=== PATIENT | male | born 1960 | race African-American/Black ===

== ENCOUNTER 2017-04-25 09:01 | Emergency (ER) | payer MEDICAID ==
[~2017-04-25] VITALS: Ht 177.8 cm; Wt 82.0 kg
[~2017-04-25 09:01] MED LIST: ASPI-1159 PO; ATOR10TA PO; GABA-531 PO; METF500T PO; NAPR-681 PO
[2017-04-25] MEDS ORDERED: MAGNESIUM CITRATE 300ML SOLUTION PO ONE (15:00)
[2017-04-25] MEDS ORDERED: SODIUM CHLORIDE 0.9% 500 ML IV ONE (15:00)
[2017-04-25 15:26] LABS: BASOPHILS % 0.3 % (0.0-2.0); EOSINOPHILS % 0.6 % (0.0-5.0); HEMATOCRIT. 36.6 % (42.0-52.0); HEMOGLOBIN. 12.7 g/dL (14.0-18.0); LYMPHOCYTES % 21.7 % (20.0-50.0); MEAN CORPUSCULAR HEMOGLOBIN 30.5 pg (28.0-32.0); MEAN CORPUSCULAR VOLUME 88.1 fL (80.0-94.0); MEAN PLATELET VOLUME 8.7 fl (7.4-10.4); MONOCYTES % 5.7 % (2.0-8.0); NEUTROPHILS % 71.7 % (40.0-76.0); PLATELET 190 x1000/uL (130-400); RED BLOOD CELL COUNT 4.15 mill/uL (4.7-6.1); RED CELL DISTRIBUTION WIDTH 12.9 % (11.6-14.6)
[2017-04-25 15:34] LABS: INR 1.1; PROTHROMBIN TIME 11.8 sec (9.4-11.6)
[2017-04-25 15:37] LABS: CHLORIDE 108 mEq/L (98-107)
[2017-04-25 15:46] LABS: CARBON DIOXIDE 28 mEq/L (21-32)
[2017-04-25 18:24] VITALS: BP 111/64
== END 2017-04-25 18:50 | disposition home or self-care (01) ==
LOC: ER 09:43
DX: K59.00 Constipation, unspecified (principal); I10 Essential (primary) hypertension; E78.00 Pure hypercholesterolemia, unspecified; E11.9 Type 2 diabetes mellitus without complications; Z87.891 Personal history of nicotine dependence; Z79.82 Long term (current) use of aspirin; Z86.73 Personal history of transient ischemic attack (TIA), and cerebral infarction without residual deficits
CPT/HCPCS: 36415; 74176; 80053; 83690; 85025; 85610; 96360; 96361; 99285; J7030

== ENCOUNTER 2018-02-18 12:34 | Inpatient (IN) | payer MEDICAID ==
[~2018-02-18] VITALS: Ht 165.1 cm; Wt 75.8 kg
[~2018-02-18 12:34] MED LIST changes: +ACET-2178 PO; -ATOR10TA PO; +ATOR20TA65 PO; +GABA-529 PO; -GABA-531 PO; +IBUP-2028 PO; +METO-539 PO; -NAPR-681 PO
[2018-02-18] MEDS ORDERED: SODIUM CHLORIDE 0.9% 1,000 ML IV ONE ×2 (12:59→16:30)
[2018-02-18] MEDS ORDERED: ONDANSETRON HCL 4MG/2ML INJ IV STA (12:59)
[2018-02-18 13:36] LABS: HEMATOCRIT. 42.7 % (42.0-52.0); HEMOGLOBIN. 15.7 g/dL (14.0-18.0); MEAN CORPUSCULAR HEMOGLOBIN 32.5 pg (28.0-32.0); MEAN CORPUSCULAR VOLUME 88.7 fL (80.0-94.0); MEAN PLATELET VOLUME 8.5 fl (7.4-10.4); PLATELET 190 x1000/uL (130-400); RED BLOOD CELL COUNT 4.82 mill/uL (4.7-6.1)
[2018-02-18 13:45] LABS: INR 1.1; PROTHROMBIN TIME 11.5 sec (9.1-11.1)
[2018-02-18 13:48] LABS: CHLORIDE 101 mEq/L (98-107)
[2018-02-18 14:11] LABS: PLATELET ESTIMATE NORMAL
[2018-02-18 15:46] LABS: CLARITY URINE CLEAR (CLEAR); COLOR URINE YELLOW (YELLOW); KETONES URINE 3+ (NEGATIVE); LEUKOCYTE ESTERASE URINE NEGATIVE (NEGATIVE); NITRITE URINE NEGATIVE (NEGATIVE); OCCULT BLOOD URINE 1+ (NEGATIVE); PROTEIN URINE NEGATIVE (NEGATIVE); SPECIFIC GRAVITY URINE 1.016 (1.005-1.030)
[2018-02-18] MEDS ORDERED: CLONIDINE 0.1MG TABLET PO PRN (18:45)
[2018-02-18] MEDS ORDERED: ACETAMINOPHEN 650MG/20.3ML UDC GT PRN (18:45)
[2018-02-18] MEDS ORDERED: HYDROCODONE/ACETAMINOPHEN 10/325MG TABLET PO PRN (18:45)
[2018-02-18] MEDS ORDERED: ACETAMINOPHEN 325MG TABLET PO PRN (18:45)
[2018-02-18] MEDS ORDERED: ONDANSETRON HCL 4MG/2ML INJ IV PRN (18:45)
[2018-02-18] MEDS ORDERED: MAGNESIUM/ALUMINUM HYDROXIDE/SIMETHICONE 30ML UDC PO PRN (18:45)
[2018-02-18] MEDS ORDERED: HYDROCODONE/ACETAMINOPHEN 5/325MG TABLET PO PRN (18:45)
[2018-02-18] MEDS ORDERED: ACETAMINOPHEN 650MG SUPP PR PRN (18:45)
[2018-02-18] MEDS ORDERED: GUAIFENESIN 200MG/10ML SUGAR FREE UDC PO PRN (18:45)
[2018-02-18] MEDS ORDERED: IPRATROPIUM/ALBUTEROL 0.5-3(2.5)MG/3ML NEB INH PRN (18:45)
[2018-02-18] MEDS ORDERED: NA PHOS,M-B/NA PHOS,DI-BA ENEMA 118ML PR PRN (21:00)
[2018-02-18] MEDS ORDERED: METOCLOPRAMIDE HCL 10MG/2ML VIAL IV NR (21:54)
[2018-02-18 22:15] VITALS: BP 169/89
[2018-02-18 23:00] VITALS: BP 169/89
[2018-02-19] VITALS: BP 162/81
[2018-02-19] MEDS: SODIUM CHLORIDE 0.45% 1,000 ML IV SCH ×2 (00:44→16:10)
[2018-02-19] MEDS: METOCLOPRAMIDE HCL 10MG/2ML VIAL IV SCH ×4 (00:45→18:34)
[2018-02-19 04:00] VITALS: BP 142/86
[2018-02-19] MEDS: SODIUM CHLORIDE 0.9% INJ 3ML FLUSH IVF SCH ×3 (06:32→20:24)
[2018-02-19 07:07] LABS: BASOPHILS % 0.1 % (0.0-2.0); HEMOGLOBIN. 14.3 g/dL (14.0-18.0); MEAN CORPUSCULAR HEMOGLOBIN 31.5 pg (28.0-32.0); MEAN CORPUSCULAR VOLUME 88.3 fL (80.0-94.0); MEAN PLATELET VOLUME 8.8 fl (7.4-10.4); NEUTROPHILS % 81.9 % (40.0-76.0); PLATELET 201 x1000/uL (130-400); RED BLOOD CELL COUNT 4.52 mill/uL (4.7-6.1); RED CELL DISTRIBUTION WIDTH 13.1 % (11.6-14.6)
[2018-02-19 07:26] LABS: CHLORIDE 100 mEq/L (98-107)
[2018-02-19] MEDS ORDERED: DEXTROSE 50% WATER 50ML SYRINGE IV PRN (07:30)
[2018-02-19] MEDS: BLOOD SUGAR DIAGNOSTIC STRIP TEST SCH ×4 (07:40→20:24)
[2018-02-19] MEDS: INSULIN LISPRO 100 UNITS/ML SUBCUT SCH ×4 (07:50→20:32)
[2018-02-19 07:51] LABS: HDL CHOLESTEROL 45 mg/dL (40-59); LDL CHOLESTEROL 71 mg/dL (5-100)
[2018-02-19 08:00] VITALS: BP 157/88
[2018-02-19 09:12] LABS: *BENZODIAZEPINES SCREEN URINE NEGATIVE (NEGATIVE)
[2018-02-19 09:41] LABS: METHADONE URINE SCREEN NEGATIVE (NEGATIVE); OPIATES URINE SCREEN NEGATIVE (NEGATIVE); PHENCYCLIDINE URINE SCREEN NEGATIVE (NEGATIVE)
[2018-02-19 09:55] LABS: *AMPHETAMINES SCREEN URINE NEGATIVE (NEGATIVE); *BARBITURATES SCREEN URINE NEGATIVE (NEGATIVE); *COCAINE SCREEN URINE NEGATIVE (NEGATIVE); CANNABINOID URINE SCREEN NEGATIVE (NEGATIVE)
[2018-02-19] MEDS: ENOXAPARIN 40MG/0.4ML SYR SUBCUT SCH (10:48)
[2018-02-19] MEDS: FAMOTIDINE 20MG/2ML VIAL IV SCH (10:48)
[2018-02-19 12:00] VITALS: BP 154/79
[2018-02-19 16:00] VITALS: BP 149/77
[2018-02-19 20:00] VITALS: BP 154/70
[2018-02-20] VITALS: BP 140/76
[2018-02-20] MEDS: METOCLOPRAMIDE HCL 10MG/2ML VIAL IV SCH ×4 (00:53→20:04)
[2018-02-20 04:00] VITALS: BP 144/87
[2018-02-20] MEDS: BLOOD SUGAR DIAGNOSTIC STRIP TEST SCH ×4 (06:11→20:19)
[2018-02-20] MEDS: SODIUM CHLORIDE 0.9% INJ 3ML FLUSH IVF SCH ×3 (06:13→21:44)
[2018-02-20] MEDS: SODIUM CHLORIDE 0.45% 1,000 ML IV SCH (07:32)
[2018-02-20] MEDS: INSULIN LISPRO 100 UNITS/ML SUBCUT SCH ×4 (07:50→20:18)
[2018-02-20 08:00] VITALS: BP 139/69
[2018-02-20] MEDS: FAMOTIDINE 20MG/2ML VIAL IV SCH (09:36)
[2018-02-20] MEDS: DOCUSATE SODIUM 100MG CAPSULE PO PRN ×2 (09:36→20:15)
[2018-02-20] MEDS: ENOXAPARIN 40MG/0.4ML SYR SUBCUT SCH (09:36)
[2018-02-20 12:00] VITALS: BP 155/83
[2018-02-20 16:00] VITALS: BP 152/83
[2018-02-20 20:00] VITALS: BP 153/78
[2018-02-21] VITALS: BP 155/86
[2018-02-21] MEDS: SODIUM CHLORIDE 0.45% 1,000 ML IV SCH ×2 (02:41→17:56)
[2018-02-21 04:00] VITALS: BP 150/76
[2018-02-21] MEDS: METOCLOPRAMIDE HCL 10MG/2ML VIAL IV SCH ×4 (06:00→17:55)
[2018-02-21] MEDS: SODIUM CHLORIDE 0.9% INJ 3ML FLUSH IVF SCH ×3 (06:13→22:18)
[2018-02-21] MEDS: BLOOD SUGAR DIAGNOSTIC STRIP TEST SCH ×4 (06:17→21:00)
[2018-02-21] MEDS: INSULIN LISPRO 100 UNITS/ML SUBCUT SCH ×4 (07:33→22:45)
[2018-02-21 08:00] VITALS: BP 141/81
[2018-02-21] MEDS: FAMOTIDINE 20MG/2ML VIAL IV SCH (08:50)
[2018-02-21] MEDS: ENOXAPARIN 40MG/0.4ML SYR SUBCUT SCH (08:51)
[2018-02-21 09:49] LABS: CHLORIDE 104 mEq/L (98-107)
[2018-02-21 10:08] LABS: BASOPHILS % 0.4 % (0.0-2.0); EOSINOPHILS % 0.8 % (0.0-5.0); HEMATOCRIT. 38.6 % (42.0-52.0); LYMPHOCYTES % 18.6 % (20.0-50.0); MEAN CORPUSCULAR HEMOGLOBIN 31.6 pg (28.0-32.0); MEAN PLATELET VOLUME 8.6 fl (7.4-10.4); MONOCYTES % 6.1 % (2.0-8.0); NEUTROPHILS % 74.1 % (40.0-76.0); PLATELET 173 x1000/uL (130-400); RED BLOOD CELL COUNT 4.44 mill/uL (4.7-6.1); RED CELL DISTRIBUTION WIDTH 13.1 % (11.6-14.6)
[2018-02-21 12:00] VITALS: BP 140/75
[2018-02-21] MEDS ORDERED: POTASSIUM CHLORIDE 20MEQ TABLET SR PO SCH (12:00)
[2018-02-21 16:00] VITALS: BP 134/74
[2018-02-21 20:00] VITALS: BP 138/61
[2018-02-22] VITALS: BP 131/66
[2018-02-22 04:00] VITALS: BP 136/62
[2018-02-22] MEDS: METOCLOPRAMIDE HCL 10MG/2ML VIAL IV SCH ×4 (06:00→18:00)
[2018-02-22] MEDS: SODIUM CHLORIDE 0.9% INJ 3ML FLUSH IVF SCH ×3 (06:36→21:48)
[2018-02-22] MEDS: BLOOD SUGAR DIAGNOSTIC STRIP TEST SCH ×4 (06:37→21:43)
[2018-02-22] MEDS: INSULIN LISPRO 100 UNITS/ML SUBCUT SCH ×4 (07:20→21:43)
[2018-02-22 08:00] VITALS: BP 156/94
[2018-02-22] MEDS: FAMOTIDINE 20MG/2ML VIAL IV SCH (09:57)
[2018-02-22] MEDS: SODIUM CHLORIDE 0.45% 1,000 ML IV SCH (09:57)
[2018-02-22] MEDS: ENOXAPARIN 40MG/0.4ML SYR SUBCUT SCH (09:59)
[2018-02-22 12:00] VITALS: BP 144/79
[2018-02-22 16:00] VITALS: BP 155/83
[2018-02-22 20:00] VITALS: BP 153/53
[2018-02-23] MEDS: METOCLOPRAMIDE HCL 10MG/2ML VIAL IV SCH ×2 (00:45→07:07)
[2018-02-23 04:00] VITALS: BP 142/69
[2018-02-23] MEDS: SODIUM CHLORIDE 0.9% INJ 3ML FLUSH IVF SCH (06:00)
[2018-02-23] MEDS: BLOOD SUGAR DIAGNOSTIC STRIP TEST SCH (07:12)
[2018-02-23 08:32] VITALS: BP 144/84
== END 2018-02-23 09:16 | disposition home or self-care (01) | DRG 48 ==
LOC: ER 12:34 → 6EST 16:37 → ENRESERV 20:28
PROVIDERS: ADMIT Family Medicine; ATTEND Family Medicine
DX: E11.43 Type 2 diabetes mellitus with diabetic autonomic (poly)neuropathy (principal); K31.84 Gastroparesis; E11.40 Type 2 diabetes mellitus with diabetic neuropathy, unspecified; I10 Essential (primary) hypertension; E86.0 Dehydration; E78.5 Hyperlipidemia, unspecified; Z86.73 Personal history of transient ischemic attack (TIA), and cerebral infarction without residual deficits; Z59.0 Homelessness; Z79.82 Long term (current) use of aspirin
CPT/HCPCS: 36415; 71045; 74176; 80061; 80305; 82962; 83036; 83880; 84484; 93005; 96361; 96374; 99285; J1650; J1815; J2405; J2765; J3490; J7030

== ENCOUNTER 2018-06-09 17:30 | Inpatient (IN) | payer MEDICAID ==
[2018-06-08 22:50] VITALS: BP 164/100
[~2018-06-09] VITALS: Ht 175.3 cm; Wt 81.6 kg
[2018-06-09] MEDS ORDERED: ASPIRIN 325MG EC TABLET PO ONE (23:00)
[2018-06-10 00:10] LABS: BASOPHILS % 0.6 % (0.0-2.0); EOSINOPHILS % 0.8 % (0.0-5.0); HEMATOCRIT. 39.9 % (42.0-52.0); HEMOGLOBIN. 14.2 g/dL (14.0-18.0); LYMPHOCYTES % 26.7 % (20.0-50.0); MEAN CORPUSCULAR HEMOGLOBIN 31.4 pg (28.0-32.0); MEAN CORPUSCULAR VOLUME 88.3 fL (80.0-94.0); MEAN PLATELET VOLUME 9.2 fl (7.4-10.4); MONOCYTES % 6.2 % (2.0-8.0); NEUTROPHILS % 65.7 % (40.0-76.0); PLATELET 177 x1000/uL (130-400); RED BLOOD CELL COUNT 4.52 mill/uL (4.7-6.1); RED CELL DISTRIBUTION WIDTH 13.4 % (11.6-14.6)
[2018-06-10 01:28] LABS: CHLORIDE 104 mEq/L (98-107)
[2018-06-10] MEDS ORDERED: CEFTRIAXONE 1 G PREMIX 50 ML IV SCH (03:00)
[2018-06-10] MEDS ORDERED: AZITHROMYCIN 500 MG in DEXT 5% WATER 250 ML IV SCH (04:00)
[2018-06-10] MEDS ORDERED: ACETAMINOPHEN 325MG TABLET PO PRN (11:45)
[2018-06-10] MEDS ORDERED: MAGNESIUM/ALUMINUM HYDROXIDE/SIMETHICONE 30ML UDC PO PRN (11:45)
[2018-06-10] MEDS ORDERED: LORAZEPAM 0.5MG TABLET PO PRN (11:45)
[2018-06-10] MEDS ORDERED: ONDANSETRON HCL 4MG/2ML INJ IV PRN (11:45)
[2018-06-10] MEDS ORDERED: DOCUSATE SODIUM 100MG CAPSULE PO PRN (11:45)
[2018-06-10] MEDS ORDERED: CLONIDINE 0.1MG TABLET PO PRN (11:45)
[2018-06-10] MEDS ORDERED: IPRATROPIUM/ALBUTEROL 0.5-3(2.5)MG/3ML NEB INH PRN (11:45)
[2018-06-10 12:51] LABS: CREATINE KINASE MB FRACTION 1.6 ng/mL (0.5-3.6)
[2018-06-10] MEDS ORDERED: POTASSIUM CHLORIDE 20MEQ TABLET SR PO NR (17:30)
[2018-06-10] MEDS ORDERED: ATORVASTATIN CALCIUM 20MG TABLET PO SCH (21:00)
[2018-06-10] MEDS: GABAPENTIN 100MG CAPSULE PO SCH (23:51)
[2018-06-10] MEDS: ATORVASTATIN CALCIUM 20MG TABLET PO SCH (23:51)
[2018-06-10] MEDS: METOPROLOL TARTRATE 25MG TABLET PO SCH (23:52)
[2018-06-11] VITALS (9 sets, daily range): BP systolic 128–176; BP diastolic 67–100
[2018-06-11] MEDS ORDERED: DEXTROSE 50% WATER 50ML SYRINGE IV PRN (01:00)
[2018-06-11] MEDS: GABAPENTIN 100MG CAPSULE PO SCH ×3 (06:42→21:17)
[2018-06-11] MEDS: BLOOD SUGAR DIAGNOSTIC STRIP TEST SCH ×4 (06:42→20:29)
[2018-06-11] MEDS: INSULIN LISPRO 100 UNITS/ML SUBCUT SCH ×4 (06:43→21:19)
[2018-06-11 08:48] LABS: BASOPHILS % 0.4 % (0.0-2.0); EOSINOPHILS % 0.6 % (0.0-5.0); HEMATOCRIT. 38.7 % (42.0-52.0); HEMOGLOBIN. 13.5 g/dL (14.0-18.0); LYMPHOCYTES % 24.3 % (20.0-50.0); MEAN CORPUSCULAR HEMOGLOBIN 30.7 pg (28.0-32.0); MEAN PLATELET VOLUME 9.1 fl (7.4-10.4); MONOCYTES % 4.9 % (2.0-8.0); NEUTROPHILS % 69.8 % (40.0-76.0); PLATELET 200 x1000/uL (130-400)
[2018-06-11] MEDS: METOPROLOL TARTRATE 25MG TABLET PO SCH ×2 (09:52→21:18)
[2018-06-11] MEDS: ASPIRIN 81MG EC TABLET PO SCH (09:53)
[2018-06-11] MEDS ORDERED: INFLUENZA VIRUS VACCINE(AFLURIA) 0.5ML SYR IM ONE (10:00)
[2018-06-11 11:04] LABS: CHLORIDE 105 mEq/L (98-107)
[2018-06-11 11:27] LABS: PHOSPHORUS 3.7 mg/dL (2.5-4.9)
[2018-06-11] MEDS ORDERED: MAGNESIUM/ALUMINUM HYDROXIDE/SIMETHICONE 30ML UDC PO NR (17:45)
[2018-06-11] MEDS: ATORVASTATIN CALCIUM 20MG TABLET PO SCH (21:17)
[2018-06-12] VITALS: BP 138/72
[2018-06-12 04:00] VITALS: BP 115/67
[2018-06-12] MEDS: BLOOD SUGAR DIAGNOSTIC STRIP TEST SCH ×2 (05:52→12:59)
[2018-06-12] MEDS: INSULIN LISPRO 100 UNITS/ML SUBCUT SCH ×2 (06:03→13:08)
[2018-06-12] MEDS: GABAPENTIN 100MG CAPSULE PO SCH ×2 (06:24→13:10)
[2018-06-12 08:10] LABS: BASOPHILS % 0.3 % (0.0-2.0); EOSINOPHILS % 1.2 % (0.0-5.0); HEMATOCRIT. 39.8 % (42.0-52.0); HEMOGLOBIN. 14.2 g/dL (14.0-18.0); MEAN CORPUSCULAR HEMOGLOBIN 31.3 pg (28.0-32.0); MEAN CORPUSCULAR VOLUME 87.8 fL (80.0-94.0); MEAN PLATELET VOLUME 9.1 fl (7.4-10.4); MONOCYTES % 5.3 % (2.0-8.0); NEUTROPHILS % 67.2 % (40.0-76.0); PLATELET 195 x1000/uL (130-400); RED BLOOD CELL COUNT 4.54 mill/uL (4.7-6.1); RED CELL DISTRIBUTION WIDTH 13.3 % (11.6-14.6)
[2018-06-12 08:21] LABS: CHLORIDE 103 mEq/L (98-107)
[2018-06-12] MEDS: ASPIRIN 81MG EC TABLET PO SCH (09:05)
[2018-06-12] MEDS: METOPROLOL TARTRATE 25MG TABLET PO SCH (09:06)
[2018-06-12] MEDS ORDERED: INSULIN LISPRO 100 UNITS/ML SUBCUT NR (12:15)
[2018-06-12 14:20] VITALS: BP 130/69
== END 2018-06-12 16:30 | disposition home or self-care (01) | DRG 199 ==
LOC: ER 17:30 → 8WST 06-10 02:16 → EDBEDREQDT 06-10 02:18 → EDBEDREQ 06-10 02:18 → EDBEDREQTM 06-10 02:18 → ENRESERV 06-10 20:44
PROVIDERS: ADMIT Internal Medicine; ATTEND Internal Medicine
DX: I16.0 Hypertensive urgency (principal); E11.40 Type 2 diabetes mellitus with diabetic neuropathy, unspecified; I24.9 Acute ischemic heart disease, unspecified; I11.9 Hypertensive heart disease without heart failure; E87.6 Hypokalemia; E78.5 Hyperlipidemia, unspecified; K21.9 Gastro-esophageal reflux disease without esophagitis; I45.10 Unspecified right bundle-branch block; E78.00 Pure hypercholesterolemia, unspecified; Z79.82 Long term (current) use of aspirin; Z79.84 Long term (current) use of oral hypoglycemic drugs; Z79.899 Other long term (current) drug therapy; Z59.0 Homelessness; Z87.891 Personal history of nicotine dependence; I69.354 Hemiplegia and hemiparesis following cerebral infarction affecting left non-dominant side; I69.351 Hemiplegia and hemiparesis following cerebral infarction affecting right dominant side; Z82.49 Family history of ischemic heart disease and other diseases of the circulatory system; M94.0 Chondrocostal junction syndrome [Tietze]
CPT/HCPCS: 36415; 71045; 76700; 80048; 82550; 82553; 82962; 83036; 83735; 83880; 84100; 84484; 93005; 93306; 93970; 96365; 96367; 99285; J0456; J0696; J1815; J7060

== ENCOUNTER 2018-12-21 15:17 | Emergency (ER) | payer MEDICAID ==
[~2018-12-21] VITALS: Ht 172.7 cm; Wt 110.0 kg
[~2018-12-21 15:17] MED LIST changes: -ASPI-1159 PO; +ASPI-1393 PO
[2018-12-21 16:57] VITALS: BP 158/80
[2018-12-21] MEDS ORDERED: IBUPROFEN 600MG TABLET PO ONE (17:00)
== END 2018-12-21 17:53 | disposition home or self-care (01) ==
LOC: ER 17:36
DX: S93.402A Sprain of unspecified ligament of left ankle, initial encounter (principal); X58.XXXA Exposure to other specified factors, initial encounter; Y93.89 Activity, other specified; Y92.89 Other specified places as the place of occurrence of the external cause
CPT/HCPCS: 73600; 99283

== ENCOUNTER 2018-12-29 16:51 | Emergency (ER) | payer MEDICAID ==
[~2018-12-29] VITALS: Ht 170.2 cm; Wt 86.0 kg
[2018-12-29] MEDS ORDERED: ONDANSETRON HCL 4MG/2ML INJ IV STA (17:49)
[2018-12-29] MEDS ORDERED: SODIUM CHLORIDE 0.9% 1,000 ML IV ONE (17:49)
[2018-12-29] MEDS ORDERED: MORPHINE SULFATE 4 MG/ML CPJ (NOT FOR IM USE) IV STA (17:49)
[2018-12-29 19:08] LABS: BASOPHILS % 0.6 % (0.0-2.0); EOSINOPHILS % 0.2 % (0.0-5.0); HEMATOCRIT. 43.1 % (42.0-52.0); HEMOGLOBIN. 15.3 g/dL (14.0-18.0); LYMPHOCYTES % 15.9 % (20.0-50.0); MEAN CORPUSCULAR HEMOGLOBIN 31.3 pg (28.0-32.0); MEAN CORPUSCULAR VOLUME 87.9 fL (80.0-94.0); MEAN PLATELET VOLUME 8.8 fl (7.4-10.4); MONOCYTES % 4.1 % (2.0-8.0); NEUTROPHILS % 79.2 % (40.0-76.0); PLATELET 185 x1000/uL (130-400); RED CELL DISTRIBUTION WIDTH 13.2 % (11.6-14.6)
[2018-12-29 19:13] LABS: CHLORIDE 104 mEq/L (98-107)
[2018-12-29 20:09] LABS: CLARITY URINE CLOUDY (CLEAR); COLOR URINE YELLOW (YELLOW); KETONES URINE TRACE (NEGATIVE); LEUKOCYTE ESTERASE URINE NEGATIVE (NEGATIVE); NITRITE URINE NEGATIVE (NEGATIVE); OCCULT BLOOD URINE TRACE (NEGATIVE); PROTEIN URINE NEGATIVE (NEGATIVE); SPECIFIC GRAVITY URINE 1.013 (1.005-1.030)
[2018-12-29 22:07] VITALS: BP 159/82
== END 2018-12-29 22:37 | disposition home or self-care (01) ==
LOC: ER 16:51
DX: R10.32 Left lower quadrant pain (principal); K59.00 Constipation, unspecified; M79.10 Myalgia, unspecified site; R53.1 Weakness; E11.9 Type 2 diabetes mellitus without complications; I10 Essential (primary) hypertension; Z86.73 Personal history of transient ischemic attack (TIA), and cerebral infarction without residual deficits; Z79.899 Other long term (current) drug therapy; Z79.82 Long term (current) use of aspirin
CPT/HCPCS: 36415; 71045; 74176; 80053; 81003; 83690; 84484; 85025; 93005; 96374; 96375; 99284; J2270; J2405; J7030